=== PATIENT | male | born 1950 | race Caucasian/White ===

== ENCOUNTER 2022-01-25 09:30 | Emergency (ER) | payer MEDICARE, SELFPAY ==
[2022-01-25 09:36] VITALS: BP 159/129; PULSE 116; RESP 18; TEMP 36.6; O2SAT 99
--- NOTE | 2022-01-25 09:48 | XRR_ITS ---
PROCEDURE INFORMATION: Exam: XR Abdomen Exam date and time: 01/25/2022 11:03 AM Age: 71 years old Clinical indication: Abdominal pain; Additional info: Llq pain TECHNIQUE: Imaging protocol: Radiologic exam of the abdomen. Views: Frontal supine view of the abdomen. 1 View. COMPARISON: No relevant prior studies available. FINDINGS: Gastrointestinal tract: Normal. No bowel dilation. 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 XR/XR KUB portable 40438 IMPRESSION: No acute findings.
--- NOTE | 2022-01-25 09:50 | W.ED.ABDPA2 ---
HPI - Abdominal Pain General: Chief Complaint: Abdominal Pain Stated Complaint: States to have bowel issues Time Seen by Provider: 01/25/22 09:41 History of Present Illness: 71-year-old male presents with left lower quadrant pain. Patient reports that it started about 4- 5 days ago. It was worse but is gotten little better but then just kind of stayed with pain in that area. Patient reports that he had a little bit of diarrhea 3 days ago but no real bowel movement since then. He does report he just did have little mucousy stool. He had 1 episode of vomiting when it first started but none since then. He has had decreased p.o. intake only having a little bit of water and broth. He reports she had some chills when it first started but none since then. Associated Symptoms: Reports other (Please see HPI); Denies fever(s) Review of Systems Const: Denies: fever(s), body aches or fatigue Eyes: Denies: change in vision or eye discharge ENMT: Denies: throat pain or ear or mastoid pain Card: Denies: chest pain or palpitations Resp: Denies: dyspnea or productive cough GI: Reports: abdominal pain, mucus in stool and other (Please see HPI) : Denies: flank pain or difficulty urinating Skin/Breast: Denies: rash or erythema Neuro: Denies: headache(s) or dizziness Psych: Denies: anxiety or depression Physical Exam Const: COMMON NORMALS: no acute distress, average body habitus and patient oriented x3 HENMT: COMMON NORMALS: hearing grossly normal bilaterally and moist oral mucous membranes Resp: COMMON NORMALS: normal respiratory effort and No retractions Cardio: COMMON NORMALS: regular rate and regular rhythm RATE: regular rate RHYTHM: regular rhythm GI: COMMON NORMALS: Soft to palpation PALPATION: Yes Soft to palpation and Yes Tenderness to palpation present (GI) Details: LLQ : COMMON NORMALS: Yes no CVA tenderness BLADDER/KIDNEY EXAM: Yes no CVA tenderness and No CVA tenderness Back/Pelvis: COMMON NORMALS: no CVA tenderness GENERAL BACK: No CVA tenderness and No warmth Extremity: COMMON NORMALS: full ROM and capillary refill normal Neuro: COMMON NORMALS: patient oriented x3, moves all extremities and no focal motor deficits Psych: COMMON NORMALS: mental status grossly normal, normal affect and speech normal SPEECH: Yes normal speech Skin: COMMON NORMALS: no rashes or lesions noted and turgor normal GENERAL SKIN EXAM: no rashes or lesions noted and turgor normal Course Vital Signs: Vital signs: Vital Signs Temperature 97.8 F 01/25/22 09:36 Pulse Rate 98 01/25/22 15:00 Respiratory Rate 16 01/25/22 15:00 Blood Pressure 168/97 01/25/22 15:00 Pulse Oximetry 97 01/25/22 15:00 MDM - Abdominal Pain Medical Decision Making Patient with a intraperitoneal abscess. Patient to be transferred to [facility] since we do not have interventional radiology or general surgery available today. Patient was given IV Zosyn here in the ER. Patient was accepted by Dr. Dumont and transferred in stable condition Lab Data 01/25/22 10:18 01/25/22 10:18 Labs/Radiology: Radiology Impressions KUB X-Ray 01/25/22 09:48 IMPRESSION: No acute findings. Abdomen/Pelvis CT 01/25/22 11:11 IMPRESSION: 1. A circumscribed pelvic abscess is seen as described. 2. Sigmoid colon diverticulosis without diverticulitis.. 3. Benign cyst right kidney Laboratory Results WBC 15.0 10^3/uL (4.0-10.0) H 01/25/22 10:18 RBC 4.74 10^6/uL (4.1-5.3) 01/25/22 10:18 Hgb 14.3 g/dL (11.7-16.6) 01/25/22 10:18 Hct 42.0 % (42.0-52.0) 01/25/22 10:18 MCV 88.6 fl (80-94) 01/25/22 10:18 MCH 30.2 pg (28.0-34.0) 01/25/22 10:18 MCHC 34.0 g/dL (30.0-36.0) 01/25/22 10:18 RDW 12.1 % (12.1-15.1) 01/25/22 10:18 Plt Count 407 10^3/cmm (130-400) H 01/25/22 10:18 MPV 9.2 fL (7.4-10.4) 01/25/22 10:18 Neut % (Auto) 86.8 % 01/25/22 10:18 Lymph % (Auto) 4.9 % 01/25/22 10:18 Keith % (Auto) 7.2 % 01/25/22 10:18 Eos % (Auto) 0.3 % 01/25/22 10:18 Baso % (Auto) 0.3 % 01/25/22 10:18 Neut # (Auto) 13.02 10^3/uL (1.8-7.7) H 01/25/22 10:18 Lymph # (Auto) 0.7 10^3/uL (0.8-4.8) L 01/25/22 10:18 Keith # (Auto) 1.1 10^3/uL (0.2-0.9) H 01/25/22 10:18 Eos # (Auto) 0.1 10^3/uL (0.0-0.8) 01/25/22 10:18 Baso # (Auto) 0.0 10^3/uL (0.0-0.1) 01/25/22 10:18 Nucleated RBC % (auto) 0 % 01/25/22 10:18 Nucleated RBCs # 0.0 /100WBC 01/25/22 10:18 Sodium 131 mmol/L (136-145) L 01/25/22 10:18 Potassium 3.7 mmol/L (3.5-5.1) 01/25/22 10:18 Chloride 95 mmol/L (98-107) L 01/25/22 10:18 Carbon Dioxide 18 mmol/L (22-29) L 01/25/22 10:18 Anion Gap 21.7 (5-19) H 01/25/22 10:18 BUN 25 mg/dL (8-23) H 01/25/22 10:18 Creatinine 0.7 mg/dL (0.7-1.2) 01/25/22 10:18 GFR Calculation 111.8 mL/min (90-130) 01/25/22 10:18 Glucose 108 mg/dL (65-115) 01/25/22 10:18 Calculated Osmolality 277 mOsm/kg (285-295) L 01/25/22 10:18 Lactate 1.3 mmol/L (0.5-2.2) 01/25/22 10:18 Calcium 9.4 mg/dL (8.5-10.5) 01/25/22 10:18 Total Bilirubin 0.5 mg/dL (0.15-1.2) 01/25/22 10:18 AST 14 U/L (0-40) 01/25/22 10:18 ALT 12 U/L (0-41) 01/25/22 10:18 Alkaline Phosphatase 80 U/L (40-130) 01/25/22 10:18 C-Reactive Protein 124.7 mg/L (0.0-4.9) H 01/25/22 10:18 Total Protein 7.6 g/dL (6.6-8.7) 01/25/22 10:18 Albumin 3.9 g/dL (3.5-5.2) 01/25/22 10:18 Globulin 3.7 g/dL (1.3-4.6) 01/25/22 10:18 Procalcitonin 0.50 ng/mL (0-0.5) 01/25/22 10:18 Discharge Plan Discharge Patient Disposition: Xfer Short-Term Hosp Clinical Impression: Intraperitoneal abscess Condition: Stable Referrals: Pieter Tyler, [facility] [Primary Care Provider] - Coding Level of Care Code ED [employer] for Chg Fwd Exam Comprehensive
[2022-01-25] MEDS: sodium chloride 0.9% 1,000 ML 999 ML IV (10:27)
[2022-01-25 10:43] LABS: Basophils % 0.3 %; Eosinophils # 0.1 10^3/uL (0.0-0.8); Eosinophils % 0.3 %; Hemoglobin 14.3 g/dL (11.7-16.6); Lymphocytes # 0.7 10^3/uL (0.8-4.8); Lymphocytes % 4.9 %; Mean Corpuscular Hemoglobin 30.2 pg (28.0-34.0); Mean Corpuscular Volume 88.6 fl (80-94); Mean Platelet Volume 9.2 fL (7.4-10.4); Monocytes # 1.1 10^3/uL (0.2-0.9); Monocytes % 7.2 %; Neutrophils # 13.02 10^3/uL (1.8-7.7); Neutrophils % 86.8 %; Nucleated Red Blood Cells % 0 %; Platelet Count 407 10^3/cmm (130-400); Red Blood Count 4.74 10^6/uL (4.1-5.3); Red Cell Distribution Width 12.1 % (12.1-15.1)
[2022-01-25 10:52] LABS: Lactate (Lactic Acid level) 1.3 mmol/L (0.5-2.2)
[2022-01-25 10:55] LABS: Alanine Aminotransferase 12 U/L (0-41); Albumin Level 3.9 g/dL (3.5-5.2); Alkaline Phosphatase 80 U/L (40-130); Anion Gap 21.7 (5-19); Aspartate Amino Transferase 14 U/L (0-40); Blood Urea Nitrogen 25 mg/dL (8-23); C Reactive Protein 124.7 mg/L (0.0-4.9); Calcium 9.4 mg/dL (8.5-10.5); Carbon Dioxide 18 mmol/L (22-29); Chloride 95 mmol/L (98-107); Globulin 3.7 g/dL (1.3-4.6); Glomerular Filtration Rate 111.8 mL/min (90-130); Glucose 108 mg/dL (65-115); Osmolality Calculated 277 mOsm/kg (285-295); Potassium 3.7 mmol/L (3.5-5.1); Sodium 131 mmol/L (136-145); Total Bilirubin 0.5 mg/dL (0.15-1.2); Total Protein 7.6 g/dL (6.6-8.7)
--- NOTE | 2022-01-25 11:11 | CTR_ITS ---
PROCEDURE INFORMATION: Exam: CT Abdomen And Pelvis With Contrast Exam date and time: 01/25/2022 11:50 AM Age: 71 years old Clinical indication: Abdominal pain; Localized; Left lower quadrant (llq); Additional info: Left lower quadrant abdominal pain TECHNIQUE: Imaging protocol: Computed tomography of the abdomen and pelvis with contrast. Radiation optimization: All CT scans at this facility use at least one of these dose optimization techniques: automated exposure control; mA and/or kV adjustment per patient size (includes targeted exams where dose is matched to clinical indication); or iterative reconstruction. Contrast material: OMNI 350; Contrast volume: 100 ml; Contrast route: INTRAVENOUS (IV); COMPARISON: CR (ABDOMEN, ) 01/25/2022 11:03 AM RADIATION DOSE METRICS: Total DLP (mGy-cm): 356.98 FINDINGS: Liver: Normal. No mass. Gallbladder and bile ducts: Normal. No calcified stones. No ductal dilation. Pancreas: Normal. No ductal dilation. Spleen: Normal. No splenomegaly. Adrenal glands: Normal. No mass. Kidneys and ureters: Multiple benign cyst right kidney No hydronephrosis. Stomach and bowel: There is sigmoid colon diverticulosis without diverticulitis No obstruction. No mucosal thickening. Appendix: No evidence of appendicitis. Intraperitoneal space: In the Yumi rectal space is a circumscribed fluid collection with air bubbles a and fluid levels measuring 30 mm x 40 mm in the axial plane chronic measurements are 33 mm x 46 mm. This finding is consistent with a pelvic peritoneal abscess. The this finding may be considered for percutaneous drainage. No free air. No significant fluid collection. Vasculature: Unremarkable. No abdominal aortic aneurysm. Lymph nodes: Unremarkable. No enlarged lymph nodes. Urinary bladder: Unremarkable as visualized. Reproductive: Unremarkable as visualized. Bones/joints: Osteoarthritis of the lumbar spine No acute fracture. Soft tissues: Unremarkable. CT/CT abdomen pelvis w con* [id number] IMPRESSION: 1. A circumscribed pelvic abscess is seen as described. 2. Sigmoid colon diverticulosis without diverticulitis.. 3. Benign cyst right kidney
[2022-01-25] MEDS: iohexol 350 mg/mL 500 mL Btl (per mL) IV (11:54)
[2022-01-25 12:27] VITALS: BP 171/91
[2022-01-25] MEDS: piperacillin-tazobactam 4.5 GM in sodium chloride 0.9% (plus) 50 ML IV (13:48)
[2022-01-25] MEDS: lactated ringers 1,000 ML 150 ML IV (14:39)
[2022-01-25 15:00] VITALS: BP 168/97; PULSE 98; RESP 16; O2SAT 97
== END 2022-01-25 14:55 | disposition short-term general hospital (02) ==
PROVIDERS: Emergency Provider Student in an Organized Health Care Education/Training Program; PCP Nurse Practitioner
DX: K65.1 Peritoneal abscess (principal)
CPT/HCPCS: 74018; 74177; 80053; 83605; 84145; 85025; 86140; 96365; 99285; J2543; J7030; J7120; Q9967

== ENCOUNTER → 2024-03-29 13:44 | Outpatient (BNVA) | payer MEDICARE, SELFPAY | PROVIDERS: PCP Nurse Practitioner; Visit Provider Nurse Practitioner Family | DX: D22.5 Melanocytic nevi of trunk (principal); L82.1 Other seborrheic keratosis; D48.5 Neoplasm of uncertain behavior of skin; L57.0 Actinic keratosis | CPT/HCPCS: 11102; 17000; 99203 ==

== ENCOUNTER → 2024-04-24 08:46 | Outpatient (BNVA) | payer MEDICARE, SELFPAY | PROVIDERS: PCP Nurse Practitioner; Visit Provider Dermatology | DX: C44.519 Basal cell carcinoma of skin of other part of trunk (principal); C44.629 Squamous cell carcinoma of skin of left upper limb, including shoulder | CPT/HCPCS: 13101; 17272; 17313 ==

== ENCOUNTER 2024-11-13 11:59 | Outpatient (RCR) | payer MEDICARE, SELFPAY | END 2024-12-05 23:59 | disposition home or self-care (01) | LOC: SPT 11:59 | PROVIDERS: Visit Provider Family Medicine | DX: M25.511 Pain in right shoulder (principal) | CPT/HCPCS: 97110; 97161 ==

== ENCOUNTER → 2024-12-01 13:24 | Outpatient (BNVA) | payer MEDICARE, SELFPAY | PROVIDERS: Visit Provider Nurse Practitioner Family | DX: L82.1 Other seborrheic keratosis (principal); Z08 Encounter for follow-up examination after completed treatment for malignant neoplasm; Z85.828 Personal history of other malignant neoplasm of skin; Z57.0 Occupational exposure to noise | CPT/HCPCS: 17000; 99213 ==

== ENCOUNTER 2024-12-12 11:13 | Outpatient (RCR) | payer MEDICARE, SELFPAY | END 2024-12-26 11:04 | disposition home or self-care (01) | LOC: SPT 11:13 | PROVIDERS: Visit Provider Family Medicine | DX: M25.511 Pain in right shoulder (principal) | CPT/HCPCS: 97110; 97164 ==